=== PATIENT | male | born 1990 | race Caucasian/White ===

== ENCOUNTER 2018-08-23 00:15 | Emergency (ER) | payer OTHER ==
[~2018-08-23] VITALS: Ht 182.9 cm; Wt 95.3 kg
[2018-08-23 00:29] VITALS: BP 147/81
[2018-08-23] MEDS ORDERED: WATER ONE (00:30)
--- NOTE | 2018-08-23 00:39 | NUR ---
ARRIVAL PT ARRIVED AMBULATORY TO ER 2 WITH A LACERATION TO THE LEFT EYEBROW MEASURING APPROXIMATELY 3CMX0.5CM. PT STATES HIT HEAD ON VALVE HANDLE IN THE OIL FIELD. STATES WAS CLOSING THE BOTTOM VALVE WHILE CO-WORKER WAS CLOSING TOP VALVE, RAISED UP AND HIT HEAD ON VALVE HANDLE. PT IN NO ACUTE DISTRESS. EDP NOTIFIED OF ARRIVAL.
[2018-08-23] MEDS ORDERED: TRIPLE ANTIBIOTIC OINTMENT TP ONE (00:56)
--- NOTE | 2018-08-23 01:00 | NUR ---
SUTURES FIVE SUTURES PLACED IN LEFT EYEBROW BY EDP AT THIS TIME.
[2018-08-23] MEDS ORDERED: BOOSTRIX TDAP IM ONE ×2 (01:05→01:30)
--- NOTE | 2018-08-23 01:10 | ER.PDOC ---
General Chief Complaint: Head Injury Stated Complaint: LAC ON EYEBROW DURING WORK Time seen by MD: 01:04 Source: patient Exam Limitations: no limitations History of Present Illness Initial Comments Hit head with a metal at work and sustained laceration to left eyebrow. Occurred: just prior to arrival Where: work Severity: moderate Location: frontal Method of Injury: direct blow Allergies: Coded Allergies: ceftriaxone (Unverified Allergy, Unknown, swelling, 08/23/18) Past Medical History Medical History: other Surgical History: knee Social History Smoking: non-smoker Alcohol Use: occassionally Drug Use: none Review of Systems Constitutional: no symptoms reported Respiratory: no symptoms reported Cardiovascular: no symptoms reported Gastrointestinal: no symptoms reported Genitourinary: no symptoms reported Skin: see HPI All Other Systems: Reviewed and Negative Physical Exam General Appearance: Alert, No Apparent Distress, WD/WN Head: Lacerations (left eyebrow) ENT: Nml external inspection, Pharynx nml 1 - Lac Neck: non-tender, painless ROM, trachea midline Cardiovascular/Respiratory: Regular Rate, Rhythm, No M/R/G, Normal Peripheral Pulses, No JVD, Normal Breath Sounds, No Respiratory Distress Gastrointestinal: Normal Bowel Sounds, No Organomegaly, No Pulsatile Mass, Non Tender, Soft Back: Normal Inspection, No CVA Tenderness, No Vertebral Tenderness Extremities: Normal Range of Motion, Non-Tender, Normal Inspection, No Pedal Edema, No Calf Tenderness, Normal Capillary Refill NEURO/PSYCH: Alert, Oriented x3, Cooperative, Interactive, Mood/affect nml Cranial Nerves: Normal Hearing, Normal Speech, PERRL Motor/Sensory: No Motor Deficit, No Sensory Deficit, No Pronator Drift, Negative Babinski's Sign Skin: Normal Color, Warm/Dry Lymphatic: No Adenopathy Shedd Coma Score Best Eye Response: (4) Open Spontaneously Best Verbal Response: (5) Oriented Best Motor Response: (6) Obeys Commands Additional Procedures Progress Laceration to face sutured with 5-0 Prolene. 6 sutures placed and sterile dressing applied. Anesthesia was with 1% Lidocaine and 100 ml NS used in cleaning. EKG/XRAY/CT/US CT Comments: No acute intracranial abnormality and no fracture Departure Time of Disposition: :49 Disposition: HOME, SELF-CARE Impression: Primary Impression: Head injury Qualified Codes: S09.90XA - Unspecified injury of head, initial encounter Additional Impression: Laceration of head Qualified Codes: S01.91XA - Laceration without foreign body of unspecified part of head, initial encounter Condition: Stable Patient Instructions: Head Injury, Adult, [id number] Referrals: PCP,UNKNOWN (PCP) PRIMARY CARE PROVIDER Additional Instructions: Keflex Ibuprofen Apply Neosporin daily Remove sutures in 7 days at your PCP or ED Duration or Time Spent with Pa: 60 mins BARBIE MATOS MD Aug 23, 2018 01:10
--- NOTE | 2018-08-23 01:20 | NUR ---
BANDAGE NEOSPRORIN AND TEFLA BANDAGE PLACED OVER SUTURES AT THIS TIME.
[2018-08-23 01:30] VITALS: BP 152/72
--- NOTE | 2018-08-23 01:47 | DIREP ---
PROCEDURE:CT HEAD OR BRAIN W/O CONTRAST COMPARISON:None. INDICATIONS:Pain from a hit with metal FINDINGS: VENTRICLES: Negative. CEREBRUM: Negative. CEREBELLUM: Negative. BRAINSTEM: Negative. BASAL CISTERNS: Negative. SKULL: Negative. SINUSES: Minimal ethmoid sinus soft tissue changes. OTHER: None. CONCLUSION: 1. There is no CT evidence of intracranial mass, hemorrhage, or acute infarct. Dictated by: Tacos Osuna M.D. on 08/23/2018 at 01:44 AM
[2018-08-23 02:02] VITALS: BP 152/72
== END 2018-08-23 01:58 | disposition home or self-care (01) ==
LOC: ER 00:15
DX: S01.112A Laceration without foreign body of left eyelid and periocular area, initial encounter (principal); Z88.1 Allergy status to other antibiotic agents; W22.8XXA Striking against or struck by other objects, initial encounter; Y93.89 Activity, other specified; Y92.69 Other specified industrial and construction area as the place of occurrence of the external cause; Y99.0 Civilian activity done for income or pay
CPT/HCPCS: 12013; 70450; 90471; 90715; 99284